=== PATIENT | male | born 1965 | race Caucasian/White ===

== ENCOUNTER 2017-04-10 18:55 | Emergency (ER) | payer BC, MEDICARE ==
[~2017-04-10] VITALS: Ht 182.9 cm; Wt 81.6 kg
[2017-04-10] MEDS ORDERED: KETOROLAC TROMETHAMINE INJ 30 MG/ML VIAL IV ONE (19:00)
--- NOTE | 2017-04-10 19:00 | NUR ---
BIBRA 77 FROM HOME C/O R HIP DISLOCATION S/P TAKING A STEP DENIES TRAUMA OR FALL., 20MG MORPHINE GIVEN ON THE FIELD PER RA. PER RA PLACED IV ON RIGHT AC 18G. PT AOX3 RR EVEN AND UNLABORED. NO SOB NOTED. NAD NOTED. NO NVD AT THIS TIME. PT GOWNED AND PLACED ON MONITOR WAITING FOR MD GARG.
[2017-04-10 19:09] LABS: BASOPHILS % (AUTO) 0.6 % (0.0-2.0); EOSINOPHILS # (AUTO) 0.1 /CMM (0.0-0.7); EOSINOPHILS % (AUTO) 2.1 % (0.0-6.0); HEMATOCRIT 32 % (39-51); HEMOGLOBIN 10.3 g/dL (13.5-17.5); LYMPHOCYTES # (AUTO) 1.6 /CMM (0.8-4.8); LYMPHOCYTES % (AUTO) 33.5 % (20.0-44.0); MEAN CORPUSCULAR HEMOGLOBIN 24 PG (26.0-33.0); MEAN CORPUSCULAR HGB CONC 33 g/dl (31.0-36.0); MEAN CORPUSCULAR VOLUME 75 fL (80-96); MONOCYTES # (AUTO) 0.4 /CMM (0.1-1.30); MONOCYTES % (AUTO) 8.2 % (2.0-12.0); NEUTROPHILS # (AUTO) 2.8 /CMM (1.8-8.9); NEUTROPHILS % (AUTO) 55.6 % (43.0-81.0); PLATELET COUNT (AUTO) 207 /CMM (150-450); RDW COEFFICIENT OF VARIATION 16.1 (11.5-15.0); RED BLOOD CELL COUNT(AUTO) 4.26 MIL/uL (4.5-6.0); WHITE BLOOD COUNT (AUTO) 4.9 K/uL (4.3-11.0)
[2017-04-10] MEDS ORDERED: KETOROLAC TROMETHAMINE INJ 30 MG/ML VIAL ONE (19:14)
[2017-04-10 19:32] LABS: CALCIUM, SERUM 8.7 mg/dL (8.5-10.1); CREATININE 1.1 mg/dL (0.6-1.3); POTASSIUM 4.6 mmol/L (3.5-5.1)
[2017-04-10] MEDS ORDERED: MORPHINE SULFATE INJ 4 MG/ML DISP.SYRIN ONE (19:55)
[2017-04-10] MEDS ORDERED: MORPHINE SULFATE INJ 2 MG/ML DISP.SYRIN ONE (19:55)
[2017-04-10] MEDS ORDERED: MORPHINE SULFATE INJ 10 MG/ML DISP.SYRIN IV ONE (20:00)
[2017-04-10] MEDS ORDERED: PROPOFOL 20 ML IV ONE (21:41)
--- NOTE | 2017-04-10 21:47 | NUR ---
DR. OWUSU AT BEDSIDE. RT AT BEDSIDE FOR CONSCIOUS SEDATION OF RIGHT HIP REDUCTION. PT AWARE OF PROCEDURE. EDUCATION PROVIDED BY MD. PT PLACED ON CARDIAC MONITORING. TIME OUT COMPLETED BY .
--- NOTE | 2017-04-10 21:53 | NUR ---
PER DR. OWUSU SUCCESSFUL RIGHT HIP REDUCTION. PT AWAKE AND ALERT. RT AT BEDSIDE FOR OBSERVATION.
--- NOTE | 2017-04-10 21:58 | NUR ---
RT Rt at bedside on stand by for conscious sedation.
[2017-04-10] MEDS ORDERED: IV NS 0.9% 1,000 ML IV ONE (22:00)
[2017-04-10] MEDS ORDERED: PROPOFOL 200 MG/20 ML VIAL IV ONE (22:00)
--- NOTE | 2017-04-10 22:09 | NUR ---
PT TO CT.
--- NOTE | 2017-04-10 22:44 | NUR ---
IV removed. Catheter intact and site benign. Pressure and 4x4 applied to site. No bleeding noted. Patient discharged to home in stable condition. Written and verbal after care instructions given. Patient verbalizes understanding of instruction. ambulatory with a steady gait. instructed not to drive. pt verbalize understanding.
[2017-04-10 22:45] VITALS: BP 128/68
== END 2017-04-10 22:46 | disposition home or self-care (01) ==
LOC: ER 18:56
DX: S73.004A Unspecified dislocation of right hip, initial encounter (principal); Z88.0 Allergy status to penicillin; X58.XXXA Exposure to other specified factors, initial encounter; Y92.34 Swimming pool (public) as the place of occurrence of the external cause; Y99.8 Other external cause status; Y93.89 Activity, other specified
CPT/HCPCS: 27265; 36415; 73502; 73700; 80048; 85025; 99285; A4606; J2704; J7030; Z7610

== ENCOUNTER 2017-04-15 10:10 | Emergency (ER) | payer BC, MEDICARE ==
[~2017-04-15] VITALS: Ht 182.9 cm; Wt 81.6 kg
[2017-04-15] MEDS ORDERED: PROPOFOL 20 ML IV ONE ×2 (10:15→10:18)
--- NOTE | 2017-04-15 10:15 | NUR ---
EDWIN FROM HOME DUT RIGHT HIP PAIN SP BENDING OVER. PATIENT WIT HX OF HIP DISLOCATION. RIGHT HIP PAIN 10/10 NON RADITING, MORPHINE GIVEN IN FIELD. VSS. IV ON RFA INTACT AND PATENT. AWAITING FOR MD VELAZQUEZ
[2017-04-15] MEDS ORDERED: IV NS 0.9% 1,000 ML BAG IV ONE (10:30)
[2017-04-15] MEDS ORDERED: PROPOFOL 200 MG/20 ML VIAL IV ONE ×2 (10:30→12:30)
--- NOTE | 2017-04-15 10:31 | NUR ---
MD BARLOW AT BEDSIDE FOR RIGHT HIP CLOSED REDUATION WITH MODERATE SEDATION
[2017-04-15] MEDS ORDERED: KETAMINE HCL (500MG/10ML) 50 MG/ML VIAL ONE (10:40)
--- NOTE | 2017-04-15 10:50 | NUR ---
integration technician at bs
--- NOTE | 2017-04-15 10:58 | NUR ---
PT AAO4. VSS
[2017-04-15] MEDS ORDERED: IBUPROFEN 600 MG TABLET PO ONE ×2 (11:21→11:30)
[2017-04-15] MEDS ORDERED: HYDROCODONE/APAP 5/325MG 1 EACH TABLET ONE (11:21)
[2017-04-15] MEDS ORDERED: HYDROCODONE/APAP 5/325MG 1 EACH TABLET PO ONE (11:30)
[2017-04-15 12:17] VITALS: BP 120/70
--- NOTE | 2017-04-15 12:17 | NUR ---
Note elyse in ED - 04/15/17 at 1229 by TRINA Patient discharged to home in stable condition. Written and verbal after care instructions given. Patient verbalizes understanding of instruction.IV removed. Catheter intact and site benign. Pressure and 4x4 applied to site. No bleeding noted.
[2017-04-15] MEDS ORDERED: KETAMINE HCL (500MG/10ML) 50 MG/ML VIAL IV ONE (12:30)
--- NOTE | 2017-04-15 12:49 | NUR ---
Patient discharged to home in stable condition. Written and verbal after care instructions given. Patient verbalizes understanding of instruction.
== END 2017-04-15 12:50 | disposition home or self-care (01) ==
LOC: ER 10:12
DX: S73.004A Unspecified dislocation of right hip, initial encounter (principal); Z88.0 Allergy status to penicillin; X58.XXXA Exposure to other specified factors, initial encounter; Y92.89 Other specified places as the place of occurrence of the external cause; Y93.89 Activity, other specified; Y99.8 Other external cause status
CPT/HCPCS: 27252; 73501; 73502; 96361; 96374; 99152; 99285; A4606; J2704 ×2; J3490; J7030; Z7610

== ENCOUNTER 2017-05-13 22:05 | Emergency (ER) | payer BC ==
[~2017-05-13] VITALS: Ht 177.8 cm; Wt 95.3 kg
--- NOTE | 2017-05-13 22:10 | NUR ---
EDWIN FROM HOME FOR RIGHT HIP DISLOCATION. NO FALL. PATIENT WAS SITTING ON THE FLOOR. 10/10, NON RADIATING, PT UNABLE TO MOVE LEFT LEG DT SEVERE PAIN. MORPHINE 8MG IV GIVEN IN FIELD/. PATIENT TO ED APPROX. 2 WEEKS AGO FOR THE SAME REASON. VSS
--- NOTE | 2017-05-13 22:21 | NUR ---
IV ACCESS TO RIGHT HAND 20 NOTED
--- NOTE | 2017-05-13 22:33 | NUR ---
CALLED XRAY FOR HIP XRAY.
--- NOTE | 2017-05-13 22:54 | NUR ---
MD HIGGINBOTHAM AT BEDSIDE
[2017-05-13] MEDS ORDERED: MORPHINE SULFATE INJ 2 MG/ML DISP.SYRIN IV ONE (23:00)
[2017-05-13] MEDS ORDERED: MORPHINE SULFATE INJ 4 MG/ML DISP.SYRIN ONE (23:04)
--- NOTE | 2017-05-13 23:05 | NUR ---
MEDICATED PATIENT FOR PAIN ORDERED
[2017-05-14] MEDS ORDERED: HYDROMORPHONE INJ 2 MG/ML DISP.SYRIN ONE (00:15)
[2017-05-14] MEDS ORDERED: PROPOFOL 20 ML IV ONE (00:27)
[2017-05-14] MEDS ORDERED: HYDROMORPHONE 1 MG/1 ML DISP.SYRIN IV ONE (00:30)
--- NOTE | 2017-05-14 00:40 | NUR ---
Right hip reduction performed by Dr Issa at bedside.
[2017-05-14] MEDS ORDERED: PROPOFOL 200 MG/20 ML VIAL IV ONE (01:00)
--- NOTE | 2017-05-14 02:30 | NUR ---
Pt ok to discharge per Dr cook. IV removed. Catheter intact and site benign. Pressure and 4x4 applied to site. No bleeding noted.Patient discharged to home in stable condition. Written and verbal after care instructions given. Patient verbalizes understanding of instruction.Patient is awake and alert to self, day, and place. pt ambulatory with a steady gait
[2017-05-14 03:03] VITALS: BP 129/70
== END 2017-05-14 03:03 | disposition home or self-care (01) ==
LOC: ER 22:08
DX: T84.020A Dislocation of internal right hip prosthesis, initial encounter (principal); Z96.641 Presence of right artificial hip joint; Z88.0 Allergy status to penicillin; X58.XXXA Exposure to other specified factors, initial encounter; Y93.89 Activity, other specified; Y92.89 Other specified places as the place of occurrence of the external cause; Y99.9 Unspecified external cause status
CPT/HCPCS: 73501; A4606; J1170; J2270; J2704; J7030; Z7610

== ENCOUNTER 2017-12-22 11:54 | Emergency (ER) | payer BC | END 2017-12-22 12:34 | disposition home or self-care (01) | DX: S39.012A Strain of muscle, fascia and tendon of lower back, initial encounter (principal); S70.01XA Contusion of right hip, initial encounter; S19.9XXA Unspecified injury of neck, initial encounter; Z88.0 Allergy status to penicillin; Z96.641 Presence of right artificial hip joint; Z98.1 Arthrodesis status; Z60.2 Problems related to living alone; V43.52XA Car driver injured in collision with other type car in traffic accident, initial encounter; Y92.89 Other specified places as the place of occurrence of the external cause; Y92.410 Unspecified street and highway as the place of occurrence of the external cause; Y99.8 Other external cause status ==

== ENCOUNTER 2018-12-06 11:33 | Emergency (ER) | payer BC ==
[~2018-12-06] VITALS: Ht 170.2 cm; Wt 87.1 kg
[2018-12-06] MEDS ORDERED: ONDANSETRON HCL/PF 4 MG/2 ML VIAL ONE (11:44)
[2018-12-06] MEDS ORDERED: HYDROMORPHONE 1 MG/1 ML DISP.SYRIN ONE (11:45)
--- NOTE | 2018-12-06 11:45 | NUR ---
patient presented to the ER c/o right hip pain possible dislocation. On room air, facial grimace noted due to pain. Connected to the monitor and pulse ox. Will continue to monitor accordingly.
[2018-12-06] MEDS ORDERED: IV NS 0.9% 1,000 ML BAG IV ONE (12:00)
[2018-12-06] MEDS ORDERED: HYDROMORPHONE INJ 2 MG/ML DISP.SYRIN IV ONE (12:00)
[2018-12-06] MEDS ORDERED: ONDANSETRON HCL/PF 4 MG/2 ML VIAL IVP ONE (12:00)
[2018-12-06] MEDS ORDERED: PROPOFOL 20 ML IV ONE ×2 (12:06→12:26)
[2018-12-06 12:09] LABS: BASOPHILS % (AUTO) 0.4 % (0.0-2.0); EOSINOPHILS % (AUTO) 3.4 % (0.0-6.0); HEMATOCRIT 45 % (39-51); LYMPHOCYTES # (AUTO) 1.5 /CMM (0.8-4.8); LYMPHOCYTES % (AUTO) 29.6 % (20.0-44.0); MEAN CORPUSCULAR HGB CONC 34 g/dl (31.0-36.0); MEAN CORPUSCULAR VOLUME 89 fL (80-96); MONOCYTES # (AUTO) 0.3 /CMM (0.1-1.30); MONOCYTES % (AUTO) 6.4 % (2.0-12.0); NEUTROPHILS % (AUTO) 60.2 % (43.0-81.0); PLATELET COUNT (AUTO) 143 /CMM (150-450); RED BLOOD CELL COUNT(AUTO) 5.01 MIL/uL (4.5-6.0)
--- NOTE | 2018-12-06 12:16 | NUR ---
Dr. Bean at bedside for procedure and patient signed consent and amenable. RT and x-ray tech at bedside. Unable to do right hip reduction and ortho MD paged and able to contact and spoke to Yolanda VILLATORO. PT is arousable and verbally responsive. Vital signs wnl. Will continue to monitor accordingly.
[2018-12-06 12:19] LABS: CALCIUM, SERUM 8.6 mg/dL (8.5-10.1); POTASSIUM 4.2 mmol/L (3.5-5.1)
[2018-12-06 12:24] LABS: ALBUMIN 3.6 g/dL (3.4-5.0); BILIRUBIN,DIRECT 0.1 mg/dL (0.0-0.2); BILIRUBIN,TOTAL 0.3 mg/dL (0.2-1.0); TOTAL PROTEIN, SERUM 6.7 g/dL (6.4-8.2)
--- NOTE | 2018-12-06 12:35 | NUR ---
CALLED NIDIA RANKIN, COOKER SYRUP WAS PAGED.
--- NOTE | 2018-12-06 12:39 | NUR ---
RT NOTE: RT STAND-BY FOR CONS. SEDATION WITH NO ADVERSE REACTION. PATIENT IS ON NASAL CANNULA 5 LPM WITH SP02=98%.
--- NOTE | 2018-12-06 13:08 | NUR ---
Debora given by
--- NOTE | 2018-12-06 13:34 | NUR ---
Chivo BRINE ROOM LABORER (ortho) and Dr. Bean, RT and x-ray tech at bedside for the procedure. MD's able to do the right hip reduction and confirmed by x-ray in placed. Patient arousable and verbally responsive, vital signs wnl. Will continue to monitor accordingly. at bedside. Profopol administered by .
--- NOTE | 2018-12-06 13:47 | NUR ---
RT NOTE: RT STANDBY FOR PROCEDURE WITH PHYSICIAN AT BEDSIDE. AFTER PROCEDURE SP02=98% ON 2LPM VIA NC.
[2018-12-06] MEDS ORDERED: MORPHINE SULFATE INJ 2 MG/ML DISP.SYRIN ONE (14:59)
[2018-12-06] MEDS ORDERED: MORPHINE SULFATE INJ 2 MG/ML DISP.SYRIN IV ONE (15:00)
[2018-12-06 15:24] VITALS: BP 128/88
--- NOTE | 2018-12-06 15:25 | NUR ---
Patient discharged to home in stable condition. Written and verbal after care instructions given. Patient verbalizes understanding of instruction.IV removed. Catheter intact and site benign. Pressure and 4x4 applied to site. No bleeding noted.
== END 2018-12-06 15:24 | disposition home or self-care (01) ==
LOC: ER 11:33
DX: T84.020A Dislocation of internal right hip prosthesis, initial encounter (principal); Z88.0 Allergy status to penicillin; Z98.890 Other specified postprocedural states; Z60.2 Problems related to living alone
CPT/HCPCS: 27265; 36415; 73502; 73551 ×2; 80048; 80076; 85025; 96374; 96375; 99152; 99285; J1170; J2270; J2405; J2704 ×2; J7030 ×2; 73552; G0500

== ENCOUNTER 2019-04-14 09:22 | Inpatient (IN) | payer MEDICARE, BC ==
[~2019-04-14] VITALS: Ht 177.8 cm; Wt 79.4 kg
--- NOTE | 2019-04-14 09:33 | NUR ---
PT BIB FROM HOME C/O OF FEVER FOR 4 DAYS, PT IS AAOX4, NOT IN RESPIRATORY DISTRESS, HOOKED TO MONITOR, KEPT RESTED AND COMFORTABLE, WILL CONTINUE TO MONITOR.
--- NOTE | 2019-04-14 09:35 | NUR ---
AT BEDSIDE FOR EVAL.
--- NOTE | 2019-04-14 09:40 | NUR ---
IV LINE ESTABLISHED BLOOD DRAWNED AND SENT TO LAB.
[2019-04-14 09:47] LABS: BASOPHILS % (AUTO) 0.3 % (0.0-2.0); HEMATOCRIT 42 % (39-51); HEMOGLOBIN 13.9 g/dL (13.5-17.5); LYMPHOCYTES # (AUTO) 0.7 /CMM (0.8-4.8); LYMPHOCYTES % (AUTO) 19.2 % (20.0-44.0); MEAN CORPUSCULAR HGB CONC 33 g/dl (31.0-36.0); MEAN CORPUSCULAR VOLUME 82 fL (80-96); MONOCYTES # (AUTO) 0.4 /CMM (0.1-1.30); MONOCYTES % (AUTO) 11.6 % (2.0-12.0); NEUTROPHILS # (AUTO) 2.6 /CMM (1.8-8.9); NEUTROPHILS % (AUTO) 67.9 % (43.0-81.0); PLATELET COUNT (AUTO) 143 /CMM (150-450); WHITE BLOOD COUNT (AUTO) 3.8 K/uL (4.3-11.0)
[2019-04-14 09:54] LABS: CALCIUM, SERUM 9.1 mg/dL (8.5-10.1); CREATININE 1.3 mg/dL (0.6-1.3); POTASSIUM 3.9 mmol/L (3.5-5.1)
[2019-04-14 10:00] LABS: ALBUMIN 2.9 g/dL (3.4-5.0); BILIRUBIN,DIRECT 0.1 mg/dL (0.0-0.2); BILIRUBIN,TOTAL 0.4 mg/dL (0.2-1.0); TOTAL PROTEIN, SERUM 7.8 g/dL (6.4-8.2)
[2019-04-14] MEDS ORDERED: IV NS 0.9% 1,000 ML BAG IV ONE (10:00)
[2019-04-14] MEDS ORDERED: CEFTRIAXONE 1GM BAG (ER ONLY) 1 GM/50 ML PIGGYBACK IV ONE (10:30)
[2019-04-14] MEDS ORDERED: AZITHROMYCIN 500 MG in IV D5W 250 ML IV ONE (10:30)
[2019-04-14] MEDS ORDERED: CEFTRIAXONE 1GM BAG (ER ONLY) 50 ML IV ONE (10:33)
[2019-04-14] MEDS ORDERED: IBUPROFEN 600 MG TABLET PO ONE (10:39)
--- NOTE | 2019-04-14 10:45 | NUR ---
MOTRIN 600MG PO GIVEN, VERBAL ORDERED BY .
[2019-04-14] MEDS ORDERED: MAGNESIUM HYDROXIDE 30 ML UDC PO PRN (11:00)
[2019-04-14] MEDS ORDERED: ACETAMINOPHEN 325 MG TABLET PO PRN (11:00)
[2019-04-14] MEDS ORDERED: ONDANSETRON HCL/PF 4 MG/2 ML VIAL IVP PRN (11:00)
[2019-04-14] MEDS ORDERED: MAG HYDROX/AL HYDROX/SIMETH 30 ML UDC PO PRN (11:00)
[2019-04-14] MEDS ORDERED: Z GUARD REMEDY 2 OZ OINT TP PRN (11:00)
[2019-04-14] MEDS ORDERED: ZOLPIDEM TARTRATE 5 MG TABLET PO PRN (11:00)
--- NOTE | 2019-04-14 11:18 | NUR ---
PT IS WHEELED TO CT SCAN.
[2019-04-14] MEDS ORDERED: CT SWABBABLE VALVE TRANS SET 1 EA INFUS.SET MC ONE (11:20)
[2019-04-14] MEDS ORDERED: IOHEXOL-300 100 ML VIAL IV ONE (11:20)
[2019-04-14] MEDS ORDERED: IV NS 0.9% 250 ML IV ONE (11:20)
--- NOTE | 2019-04-14 12:10 | NUR ---
SPUTUM SPECIMEN OBTAINED AND SENT TO LAB.
[2019-04-14] MEDS ORDERED: HYDROMORPHONE 1 MG/1 ML DISP.SYRIN ONE (12:30)
[2019-04-14] MEDS ORDERED: HYDROMORPHONE INJ 0.5 MG/0.5 ML SYRINGE IV ONE (12:30)
--- NOTE | 2019-04-14 13:15 | NUR ---
REPORT GIVEN TO BENNETT SONG FOR ALICIA
--- NOTE | 2019-04-14 13:28 | NUR ---
MS LITIGATION ATTORNEY ASSOCIATE NOTES Received Patient resting in bed. A/O x 4. VS stable with no acute distress. Breathing even and unlabored on room air with no respiratory distress. Patient stated 8/10 pain on RIGHT HIP s/p surgery on October 2018. Will intervene as ordered. 18g PIV on RAC clean, dry, intact and flushing well with NS running at 100ml/hr. Skin assessed and documented. Patient refused skin assessment pictures. Safety precautions in place. Bed locked and set to lowest position with side rails x 1 up. All needs rendered at this time. Will continue to monitor.
[2019-04-14] MEDS: IV NS 0.9% 1,000 ML IV PRN (13:48)
[2019-04-14] MEDS ORDERED: TUBERCULIN,PURIF.PROT.DERIV. 5 TU/0.1 ML DISP.SYRIN ID ONE (14:00)
[2019-04-14] MEDS: HYDROCODONE/APAP 5/325MG 1 EACH TABLET PO PRN ×2 (14:47→20:29)
[2019-04-14 16:00] VITALS: BP 126/70
--- NOTE | 2019-04-14 16:25 | NUR ---
MS RN NOTES Administered [place] 5-325mg PO at 1447 for 8/10 pain on RIGHT HIP. Patient stated ineffective pain management upon reassessment at 1547. Patient stated that Dilaudid was effective. Notified Dr. Griggs of Patients request. Awaiting orders. Will continue to monitor.
--- NOTE | 2019-04-14 17:20 | NUR ---
MS RN NOTES Administered TB test on LEFT FOREARM. Patient tolerated well. Will continue to monitor.
--- NOTE | 2019-04-14 18:39 | NUR ---
MS RN NOTES Per MD, Dilaudid 1mg PO Q6H PRN. Order noted and carried. Will continue to monitor.
[2019-04-14] MEDS: HYDROMORPHONE HCL 2 MG TABLET PO PRN (18:58)
--- NOTE | 2019-04-14 19:10 | NUR ---
MS RN CLOSING NOTES Patient awake and ambulating in room. A/O x 4. VS stable with no acute distress. Breathing even and unlabored on room air with no respiratory distress. Patient stated 9/10 pain on RIGHT HIP. Administered Dilaudid 1mg PO at 1858. Will endorse to oncoming shift. 18g PIV on RAC clean, dry, intact and flushing well with NS running at 100ml/hr. Safety precautions in place. Bed locked and set to lowest position with side rails x 1 up. All needs rendered at this time. Will endorse plan of care to oncoming shift.
--- NOTE | 2019-04-14 19:50 | NUR ---
RN MS OPENING NOTES RECEIVED PATIENT IN BED AWAKE, ALERT AND ORIENTED X4, VERBALLY RESPONSIVE, ABLE TO MAKE NEEDS KNOWN. BREATHING EVEN AND UNLABORED. NO SOB NOTED. TOLERATING ROOM AIR. CURRENTLY WITH NO COMPLAINTS OF PAIN OR DISCOMFORT - DILAUDID RECENTLY GIVEN BY DAY NURSE. IV ON THE RIGHT AC INTACT AND PATENT. SKIN DRY AND WARM TO TOUCH. AFEBRILE. ALL OTHER NEEDS ATTENDED TO. SAFETY MEASURES IN PLACE. CALL LIGHT WITHIN REACH. WILL CONTINUE TO MONITOR.
[2019-04-14 20:00] VITALS: BP 108/63
[2019-04-15] MEDS: IV NS 0.9% 1,000 ML IV PRN (04:05)
[2019-04-15] MEDS: HYDROMORPHONE HCL 2 MG TABLET PO PRN (04:05)
--- NOTE | 2019-04-15 06:00 | NUR ---
RN MS NOTES PATIENT STATED THAT HE HAD DIARRHEA X3 DURING DAY SHIFT YESTERDAY. INSTRUCTED PATIENT TO INFORM ME ONCE HE FEELS LIKE GOING AGAIN FOR POSSIBLE COLLECTION. PATIENT HAD NO BM THROUGHOUT SHIFT.
--- NOTE | 2019-04-15 06:44 | NUR ---
RN MS CLOSING NOTES PATIENT RESTING IN BED. NO ACUTE CHANGES THROUGHOUT SHIFT. BREATHING EVEN AND UNLABORED. NO SOB NOTED. TOLERATING ROOM AIR. CURRENTLY WITH NO COMPLAINTS OF PAIN OR DISCOMFORT. IV ON THE RIGHT AC AND FOREARM INTACT AND PATENT WITH IVF INFUSING. ALL OTHER NEEDS ATTENDED TO. SAFETY MEASURES IN PLACE. CALL LIGHT WITHIN REACH. WILL ENDORSE TO ONCOMING NURSE FOR ALICIA.
--- NOTE | 2019-04-15 07:30 | NUR ---
RN OPENING NOTES RECEIVED PATIENT IN BED AWAKE, ALERT AND ORIENTED X4, VERBALLY RESPONSIVE, ABLE TO MAKE NEEDS KNOWN. BREATHING EVEN AND UNLABORED. NO SOB NOTED. NOT IN ANY FORM OF DISTRESS. TOLERATING ROOM AIR. IV ON THE RIGHT AC INTACT AND PATENT. ALL OTHER NEEDS ATTENDED TO. SAFETY MEASURES IN PLACE. CALL LIGHT WITHIN REACH. BED IN LOW/LOCKED POSITION, SIDERAILS UP X2. WILL CONTINUE TO MONITOR ACCORDINGLY.
[2019-04-15] MEDS: HYDROCODONE/APAP 5/325MG 1 EACH TABLET PO PRN (07:41)
--- NOTE | 2019-04-15 07:49 | NUR ---
RN NOTES COMPLAINTS OF HIP PAIN 03/01, ACHING..NORCO 5 GIVEN ORDERED. WILL REASSESS ACCORDINGLY
[2019-04-15 08:10] VITALS: BP 104/62
[2019-04-15 08:15] LABS: BASOPHILS % (AUTO) 0.4 % (0.0-2.0); EOSINOPHILS % (AUTO) 1.8 % (0.0-6.0); HEMATOCRIT 38 % (39-51); HEMOGLOBIN 12.3 g/dL (13.5-17.5); LYMPHOCYTES # (AUTO) 0.9 /CMM (0.8-4.8); LYMPHOCYTES % (AUTO) 31.9 % (20.0-44.0); MEAN CORPUSCULAR HGB CONC 33 g/dl (31.0-36.0); MEAN CORPUSCULAR VOLUME 82 fL (80-96); MONOCYTES # (AUTO) 0.3 /CMM (0.1-1.30); NEUTROPHILS # (AUTO) 1.6 /CMM (1.8-8.9); NEUTROPHILS % (AUTO) 53.9 % (43.0-81.0); PLATELET COUNT (AUTO) 155 /CMM (150-450); RED BLOOD CELL COUNT(AUTO) 4.61 MIL/uL (4.5-6.0); WHITE BLOOD COUNT (AUTO) 2.9 K/uL (4.3-11.0)
[2019-04-15 08:25] LABS: CALCIUM, SERUM 8.3 mg/dL (8.5-10.1); MAGNESIUM 1.9 mg/dL (1.8-2.4); POTASSIUM 3.9 mmol/L (3.5-5.1)
[2019-04-15 08:55] LABS: BAND % (MANUAL) 1 % (0.0-5.0); EOSINOPHILS % (MANUAL) 4 % (0-4); LYMPHOCYTES % (MANUAL) 40 % (16-48); MONOCYTES % (MANUAL) 10 % (0-11.0); NEUTROPHILS % (MANUAL) 45 (42-76)
[2019-04-15] MEDS ORDERED: AZITHROMYCIN 500 MG in IV D5W 250 ML IV SCH (09:00)
[2019-04-15] MEDS ORDERED: LEVO500T75 PO (10:52)
[2019-04-15] MEDS ORDERED: CEFTRIAXONE 1 G in IV D5W 50 ML IV SCH (11:00)
--- NOTE | 2019-04-15 11:19 | NUR ---
DISCHARGED PATIENT IN STABLE CONDITION. ACCOMPANIED BY BENNETT VALERA AT THE LOBBY PICKED UP BY . DISCHARGE INSTRUCTIONS GIVEN, VERBALIZED UNDERSTANDING. DC PAPERWORK AND PRESCRIPTION HANDED TO PATIENT. ALL BELONGINGS RETURNED, FORM SIGNED. REMOVED IV ACCESS, NO BLEEDING, NO COMPLICATIONS. REMOVED NAME BAND. REFUSED PHOTOS.
[2019-04-15] MEDS ORDERED: ZITHROMAX 500 MG/250 ML D5W IV SCH ×2 (12:00)
== END 2019-04-15 11:30 | disposition home or self-care (01) | DRG 871 ==
LOC: ER 09:25 → MED 13:13
PROVIDERS: ADMIT Internal Medicine; ATTEND Internal Medicine
DX: A41.9 Sepsis, unspecified organism (principal); J15.9 Unspecified bacterial pneumonia; E43 Unspecified severe protein-calorie malnutrition; N17.0 Acute kidney failure with tubular necrosis; E87.1 Hypo-osmolality and hyponatremia; Z96.651 Presence of right artificial knee joint; Z88.0 Allergy status to penicillin; D72.819 Decreased white blood cell count, unspecified; D69.6 Thrombocytopenia, unspecified; E86.1 Hypovolemia; K44.9 Diaphragmatic hernia without obstruction or gangrene; J98.4 Other disorders of lung
CPT/HCPCS: 36415; 71045-TC; 71260-TC; 80048-TC; 80076-TC; 83735-TC; 84100-TC; 85025-TC; 87040-TC; 87081-TC; G0378; J0456; J0696; J1170; J7030; J7050; J7060; Q9967

== ENCOUNTER 2022-01-03 01:37 | Emergency (ER) | payer BC, MEDICARE ==
[~2022-01-03] VITALS: Ht 170.2 cm; Wt 79.4 kg
[~2022-01-03 01:37] MED LIST: LEVO500T23 PO
--- NOTE | 2022-01-03 02:00 | NUR ---
BIBRA C/O R HIP PAIN . PT DENIES ANY TRAUMA STATES HE WAS GETTING OUT OF THE CAR AND FELT PAIN. HX OF HIP REPLACEMENT WITH DISLOCATION. INTERNAL ROTATION OG R LOWER EXTREMITY NOTED. PT AWAKE AND ALERT X4 IN ACUTE DISTRESS RELATED TO PAIN. ALL V/S WNL.
--- NOTE | 2022-01-03 02:09 | NUR ---
xray at bedside
[2022-01-03] MEDS ORDERED: MORPHINE SULFATE INJ 4 MG/ML DISP.SYRIN ONE (02:15)
[2022-01-03] MEDS ORDERED: PROPOFOL 20 ML IV ONE (02:16)
--- NOTE | 2022-01-03 02:33 | NUR ---
MD, RN, AND RT'S AT BEDSIDE FOR MODERATE SEDATION AND REDUCTION OF R HIP. TIMEOUT COMPLETED. CONSENT SIGNED AND IN PT CHART.
--- NOTE | 2022-01-03 02:37 | NUR ---
0236: PROPOFOL 80MG ADMINSTERRED 0237:PROPOFOL 20MG ADMINSTERRED 0237:REDUCTION SUCCESSFUL. XRAY PAGED
--- NOTE | 2022-01-03 02:47 | NUR ---
XRAY AT BEDSIDE
[2022-01-03] MEDS ORDERED: PROPOFOL 200 MG/20 ML VIAL IV ONE (03:00)
[2022-01-03] MEDS ORDERED: MORPHINE SULFATE INJ 2 MG/ML DISP.SYRIN IV ONE (03:00)
--- NOTE | 2022-01-03 05:15 | NUR ---
PT SLEEPING COMOFRTABLY AROUSABLE TO VERBAL STIMULI. REMAINS ON MONITOR AND V/S WNL.
--- NOTE | 2022-01-03 06:53 | NUR ---
[facility] CALLED FOR PICKUP.ETA 10-15 MINS
--- NOTE | 2022-01-03 07:01 | NUR ---
Patient discharged to home in stable condition. Written and verbal after care instructions given. Patient verbalizes understanding of instruction.
[2022-01-03 07:02] VITALS: BP 111/65
== END 2022-01-03 07:16 | disposition home or self-care (01) ==
LOC: ER 01:44
DX: S73.004A Unspecified dislocation of right hip, initial encounter (principal); Z98.890 Other specified postprocedural states; Z88.0 Allergy status to penicillin; Z60.2 Problems related to living alone; X58.XXXA Exposure to other specified factors, initial encounter; Y93.89 Activity, other specified; Y92.89 Other specified places as the place of occurrence of the external cause; Y99.8 Other external cause status
CPT/HCPCS: 27250; 73502 ×2; 96374; 99152; 99285; J2270; J2704; J7030; G0500